=== PATIENT | female | born 1995 | race Caucasian/White ===

== ENCOUNTER 2016-10-15 22:59 | Emergency (ER) | payer BC ==
[~2016-10-15] VITALS: Ht 177.8 cm; Wt 60.3 kg
[~2016-10-15 22:59] MED LIST: MULTIVITAMIN1 EAC2 PO
[2016-10-15 23:52] LABS: ADD MIUA? YES; BILIRUBIN NEGATIVE; BLOOD NEGATIVE; COLOR YELLOW ((YELLOW)); GLUCOSE (STRIP) NEGATIVE; KETONES NEGATIVE; LEUKOCYTES MODERATE; NITRITE NEGATIVE; PH, URINE 7.5 (5-8); PROTEIN (STRIP) TRACE; SPECIFIC GRAVITY 1.027 (1.000-1.030)
[2016-10-15 23:55] LABS: HEMATOCRIT 40.6 % (36.0-46.0); MCH 30.1 PG (29.0-34.0); MCV 88.5 FL (83-99); MEAN PLAT.VOLUME 9.4 uM^3 (9.5-12.4); PLATELET COUNT 240 K/uL (156-360); RBC DIS.WIDTH-SD 38.2 % (39-53); RED BLOOD COUNT 4.59 M/uL (3.80-5.20)
[2016-10-16 00:04] LABS: CHLORIDE 105 mEq/L (99-109)
[2016-10-16 00:05] LABS: POTASSIUM 3.8 mEq/L (3.7-5.4); SODIUM 140 mEq/L (136-147)
[2016-10-16 00:07] LABS: GLUCOSE 105 mg/dL (70-99)
[2016-10-16 00:08] LABS: ANION GAP 10 MEQ/L (2-14)
[2016-10-16 00:09] LABS: BACTERIA RARE /HPF; EPITHELIAL CELLS 1+ /HPF; MUCUS TRACE /LPF; RED BLOOD CELLS 0-5 /HPF (0-5); UCUL ADDED? NO
[2016-10-16 00:09] LABS: TOTAL BILIRUBIN 0.6 mg/dL (0.0-1.0)
[2016-10-16 00:10] LABS: ALKALINE PHOSPHATASE 51 IU/L (3-129); GFR ESTIMATE (CALCULATED) > 59 mL/min/
[2016-10-16 00:12] LABS: UREA NITROGEN (BUN) 17 mg/dL (9-23)
[2016-10-16 00:20] LABS: QUANTITATIVE HCG < 4.0 MIU/ML
[2016-10-16] MEDS ORDERED: ZOFRAN4 MG PO (01:26)
[2016-10-16 01:36] VITALS: BP 114/67
== END 2016-10-16 01:38 | disposition home or self-care (01) ==
LOC: EME 22:59
DX: R11.10 Vomiting, unspecified (principal); Z88.1 Allergy status to other antibiotic agents
CPT/HCPCS: 80053; 81003; 84702; 85027; 99281; 99284

== ENCOUNTER 2017-09-30 10:37 | Emergency (ER) | payer OTHER, BC ==
[~2017-09-30] VITALS: Ht 175.3 cm; Wt 62.3 kg
[~2017-09-30 10:37] MED LIST changes: +ZOFRAN4 MG PO
[2017-09-30 13:31] VITALS: BP 107/66
[2017-09-30] MEDS ORDERED: PERCOCET 5/31 TABLET PO (17:09)
== END 2017-09-30 13:38 | disposition left against medical advice (07) ==
LOC: EME 10:37
DX: S06.5X0A Traumatic subdural hemorrhage without loss of consciousness, initial encounter (principal); S02.19XA Other fracture of base of skull, initial encounter for closed fracture; W31.9XXA Contact with unspecified machinery, initial encounter; Y99.0 Civilian activity done for income or pay
CPT/HCPCS: 70450; 99281; 99284

== ENCOUNTER 2017-09-30 15:57 | Emergency (ER) | payer OTHER, BC ==
[~2017-09-30] VITALS: Ht 175.3 cm; Wt 62.4 kg
[2017-09-30] MEDS ORDERED: PERCOCET 5/31 TABLET PO (17:09)
[2017-09-30 17:39] VITALS: BP 109/58
== END 2017-09-30 17:40 | disposition home or self-care (01) ==
LOC: EME 15:57
DX: G44.309 Post-traumatic headache, unspecified, not intractable (principal); S06.5X0A Traumatic subdural hemorrhage without loss of consciousness, initial encounter; W31.9XXA Contact with unspecified machinery, initial encounter; Y99.0 Civilian activity done for income or pay; Z88.0 Allergy status to penicillin
CPT/HCPCS: 99281; 99284